=== PATIENT | male | born 1965 | race Caucasian/White ===

== ENCOUNTER 2021-07-25 12:02 | Emergency (ER) | payer OTHER ==
[2021-07-25 13:59] LABS: INFLUENZA A NAA NEGATIVE (NEGATIVE)
[2021-07-25 14:00] LABS: CORONAVIRUS 2019 SARS-COV-2 POSITIVE (NEGATIVE)
[2021-07-25] MEDS ORDERED: ONDANSETRON ODT4 MG PO (14:50)
[2021-07-25] MEDS ORDERED: VENTOLIN (2.5 MG/3 M INH (14:50)
== END 2021-07-25 15:07 | disposition home or self-care (01) ==
LOC: FER 12:02
PROVIDERS: Emergency Medicine
DX: U07.1 COVID-19 (principal)
CPT/HCPCS: 99284; U0002